=== PATIENT | male | born 1980 | race Caucasian/White ===

== ENCOUNTER → 2017-11-21 | Emergency (ER) | payer OTHER ==
[~2017-11-21] VITALS: Ht 182.9 cm; Wt 81.7 kg
[~2017-11-21] MED LIST: ALEVE220 M1 PO; BENTYL20 MG PO; CIPRO500 MG PO; FLAGYL500 MG PO; IBUPROFEN200 M1 PO; MOBIC7.5 MG PO; ZOFRAN ODT4 MG PO
== END ==
LOC: ED 07:15
DX: K52.9 Noninfective gastroenteritis and colitis, unspecified (principal); F17.200 Nicotine dependence, unspecified, uncomplicated; Z88.8 Allergy status to other drugs, medicaments and biological substances
CPT/HCPCS: 74177; 80053; 83605; 83690; 85025; 96361; 96374; 96375; 99284; G0480; J2270; J2405; J7030; Q9967